=== PATIENT | male | born 1950 | race Caucasian/White ===

== ENCOUNTER 2021-11-30 16:24 | Inpatient (IN) ==
[2021-12-14] MEDS ORDERED: Benzonatate 100 MG CAPSULE PO PRN (21:24)
[2021-12-15 06:37] LABS: Basophils % 0.1 %; Eosinophils # 0.1 K/mcL (0.0-0.6); Eosinophils % 1.2 %; Hematocrit 47.1 % (37.5-50.1); Hemoglobin 15.1 g/dL (12.9-16.9); Immature Granulocytes % 1.1 % (0-4); Lymphocytes # 1.8 K/mcL (0.6-4.6); Lymphocytes % 21.2 %; Mean Corpuscular HGB Conc 32.1 g/dL (31.6-35.5); Mean Corpuscular Hemoglobin 27.5 pg (28.0-33.3); Mean Corpuscular Volume 85.6 fL (83.0-100.0); Mean Platelet Volume 10.4 fL (9.4-12.4); Monocytes # 0.9 K/mcL (0.0-1.3); Monocytes % 10.4 %; Neutrophils # 5.5 K/mcL (1.6-8.9); Platelet Count 280 K/mcL (140-400); Red Cell Distribution Width 13.3 % (11.5-14.5); White Blood Count 8.3 K/mcL (4.3-11.1)
[2021-12-15 07:06] LABS: BUN/Creatinine Ratio 26 (6-26); Blood Urea Nitrogen 20 mg/dL (8-23); Calcium 8.7 mg/dL (8.6-10.3); Carbon Dioxide 31 mEq/L (23-29); Chloride 99 mEq/L (98-107); Glucose 182 mg/dL (70-105); Osmolality,Calculated 289 (280-300); Potassium 3.8 mEq/L (3.5-5.1); Sodium 136 mEq/L (136-145); eGFR For African Americans > 60 (> 60); eGFR For Non-African Americans > 60 (> 60)
[2021-12-15] MEDS: dexAMETHasone 4 MG TABLET PO SCH (10:01)
[2021-12-15] MEDS: Aspirin Enteric Coated 81 MG Tablet PO SCH (10:01)
[2021-12-15] MEDS: hydroCHLOROthiazide 25 MG TABLET PO SCH (10:01)
[2021-12-15] MEDS ORDERED: D5% in Water 1,000 ML IVC PRN (10:17)
[2021-12-15] MEDS ORDERED: *HR* Dextrose 50 % in Water (Syg) 50 ML SYRINGE IVP PRN (10:17)
[2021-12-15] MEDS ORDERED: Dextrose Gel 15 GM/37.5 ML TUBE PO PRN ×2 (10:17)
[2021-12-15] MEDS: Insulin LISPRO 300 UNITS/3 ML VIAL SUBQ SCH ×3 (12:31→21:34)
[2021-12-16] MEDS: Insulin LISPRO 300 UNITS/3 ML VIAL SUBQ SCH ×4 (08:33→21:37)
[2021-12-16] MEDS: dexAMETHasone 4 MG TABLET PO SCH (08:58)
[2021-12-16] MEDS: Aspirin Enteric Coated 81 MG Tablet PO SCH (08:58)
[2021-12-16] MEDS: hydroCHLOROthiazide 25 MG TABLET PO SCH (08:59)
[2021-12-16] MEDS ORDERED: Insulin DETEMIR 100 UNIT/ML per UNIT SUBQ ONE (21:00)
[2021-12-17] MEDS: Insulin LISPRO 300 UNITS/3 ML VIAL SUBQ SCH ×4 (09:15→19:47)
[2021-12-17] MEDS: Aspirin Enteric Coated 81 MG Tablet PO SCH (09:19)
[2021-12-17] MEDS: hydroCHLOROthiazide 25 MG TABLET PO SCH ×2 (09:20→09:21)
[2021-12-17] MEDS: dexAMETHasone 4 MG TABLET PO SCH (09:21)
[2021-12-17] MEDS: Insulin DETEMIR 100 UNIT/ML X5UNITS SUBQ SCH ×2 (09:36→19:47)
[2021-12-17] MEDS: Sennosides/Docusate Sodium TABLET PO SCH ×2 (12:49→19:47)
[2021-12-18] MEDS: *HR* Enoxaparin 40 MG/0.4 ML SYRINGE SQ SCH (05:29)
[2021-12-18] MEDS: Insulin LISPRO 300 UNITS/3 ML VIAL SUBQ SCH ×4 (08:14→20:21)
[2021-12-18] MEDS: Sennosides/Docusate Sodium TABLET PO SCH ×2 (08:17→20:20)
[2021-12-18] MEDS: Aspirin Enteric Coated 81 MG Tablet PO SCH (08:18)
[2021-12-18] MEDS: hydroCHLOROthiazide 25 MG TABLET PO SCH (08:21)
[2021-12-18] MEDS: Insulin DETEMIR 100 UNIT/ML X5UNITS SUBQ SCH ×2 (08:23→20:21)
[2021-12-19] MEDS: *HR* Enoxaparin 40 MG/0.4 ML SYRINGE SQ SCH (05:19)
[2021-12-19] MEDS: Sennosides/Docusate Sodium TABLET PO SCH ×2 (08:41→20:02)
[2021-12-19] MEDS: hydroCHLOROthiazide 25 MG TABLET PO SCH (08:41)
[2021-12-19] MEDS: Aspirin Enteric Coated 81 MG Tablet PO SCH (08:41)
[2021-12-19] MEDS: Insulin DETEMIR 100 UNIT/ML X5UNITS SUBQ SCH ×2 (09:02→20:02)
[2021-12-19] MEDS: Insulin LISPRO 300 UNITS/3 ML VIAL SUBQ SCH ×4 (09:03→20:03)
[2021-12-20] MEDS: *HR* Enoxaparin 40 MG/0.4 ML SYRINGE SQ SCH (05:53)
[2021-12-20] MEDS: Aspirin Enteric Coated 81 MG Tablet PO SCH (07:52)
[2021-12-20] MEDS: Sennosides/Docusate Sodium TABLET PO SCH ×2 (07:53→21:06)
[2021-12-20] MEDS: hydroCHLOROthiazide 25 MG TABLET PO SCH (07:53)
[2021-12-20] MEDS: Insulin LISPRO 300 UNITS/3 ML VIAL SUBQ SCH ×4 (07:53→21:09)
[2021-12-20] MEDS: Insulin DETEMIR 100 UNIT/ML X5UNITS SUBQ SCH ×2 (08:32→21:10)
[2021-12-20 19:57] VITALS: BP 122/73
[2021-12-21] MEDS: *HR* Enoxaparin 40 MG/0.4 ML SYRINGE SQ SCH (05:34)
[2021-12-21 06:33] VITALS: PULSE 78; RESP 19; TEMP 98.3
[2021-12-21 07:30] LABS: Hematocrit 41.9 % (37.5-50.1); Hemoglobin 13.1 g/dL (12.9-16.9); Mean Corpuscular HGB Conc 31.3 g/dL (31.6-35.5); Mean Corpuscular Hemoglobin 27.4 pg (28.0-33.3); Mean Corpuscular Volume 87.7 fL (83.0-100.0); Mean Platelet Volume 10.3 fL (9.4-12.4); Platelet Count 185 K/mcL (140-400); Red Blood Count 4.78 M/mcL (4.19-5.50); Red Cell Distribution Width 13.6 % (11.5-14.5); White Blood Count 6.7 K/mcL (4.3-11.1)
[2021-12-21 07:51] LABS: BUN/Creatinine Ratio 18 (6-26); Blood Urea Nitrogen 13 mg/dL (8-23); Calcium 8.5 mg/dL (8.6-10.3); Carbon Dioxide 35 mEq/L (23-29); Chloride 100 mEq/L (98-107); Glucose 113 mg/dL (70-105); Osmolality,Calculated 285 (280-300); Potassium 3.6 mEq/L (3.5-5.1); Sodium 137 mEq/L (136-145); eGFR For African Americans > 60 (> 60); eGFR For Non-African Americans > 60 (> 60)
[2021-12-21] MEDS: hydroCHLOROthiazide 25 MG TABLET PO SCH (08:28)
[2021-12-21] MEDS: Sennosides/Docusate Sodium TABLET PO SCH (08:28)
[2021-12-21] MEDS: Aspirin Enteric Coated 81 MG Tablet PO SCH (08:28)
[2021-12-21] MEDS: Insulin DETEMIR 100 UNIT/ML X5UNITS SUBQ SCH (08:29)
[2021-12-21] MEDS: Insulin LISPRO 300 UNITS/3 ML VIAL SUBQ SCH ×2 (08:29→12:42)
[2021-12-21 10:51] VITALS: O2SAT 94
== END 2021-12-21 15:35 | disposition home health service (06) | DRG 177 ==
LOC: INPPIK 12-14 17:07
PROVIDERS: ADMIT Family Medicine; ATTEND Family Medicine

== ENCOUNTER 2021-11-30 19:03 | Inpatient (IN) ==
[2021-12-01] MEDS ORDERED: SOLIQUA SQ PRN (23:18)
[2021-12-02 06:29] LABS: Basophils % 0.2 %; Eosinophils % 0.2 %; Hemoglobin 14.5 g/dL (12.9-16.9); Immature Granulocytes % 0.4 % (0-4); Lymphocytes # 0.7 K/mcL (0.6-4.6); Lymphocytes % 13.8 %; Mean Corpuscular HGB Conc 31.5 g/dL (31.6-35.5); Mean Corpuscular Hemoglobin 27.6 pg (28.0-33.3); Mean Corpuscular Volume 87.5 fL (83.0-100.0); Mean Platelet Volume 11.4 fL (9.4-12.4); Monocytes # 0.8 K/mcL (0.0-1.3); Monocytes % 14.6 %; Neutrophils # 3.7 K/mcL (1.6-8.9); Platelet Count 211 K/mcL (140-400); Red Blood Count 5.26 M/mcL (4.19-5.50); Segmented Neutrophils % 70.8 %; White Blood Count 5.2 K/mcL (4.3-11.1)
[2021-12-02 06:56] LABS: BUN/Creatinine Ratio 19 (6-26); Blood Urea Nitrogen 14 mg/dL (8-23); Calcium 8.8 mg/dL (8.6-10.3); Carbon Dioxide 32 mEq/L (23-29); Chloride 102 mEq/L (98-107); Glucose 200 mg/dL (70-105); Osmolality,Calculated 298 (280-300); Potassium 3.7 mEq/L (3.5-5.1); Sodium 141 mEq/L (136-145); eGFR For African Americans > 60 (> 60); eGFR For Non-African Americans > 60 (> 60)
[2021-12-02] MEDS ORDERED: D5% in Water 1,000 ML IVC PRN (07:56)
[2021-12-02] MEDS ORDERED: Dextrose Gel 15 GM/37.5 ML TUBE PO PRN ×2 (07:56)
[2021-12-02] MEDS ORDERED: *HR* Dextrose 50 % in Water (Syg) 50 ML SYRINGE IVP PRN (07:56)
[2021-12-02] MEDS: Insulin LISPRO 300 UNITS/3 ML VIAL SUBQ SCH ×3 (08:38→17:30)
[2021-12-02] MEDS: Aspirin Enteric Coated 81 MG Tablet PO SCH (08:39)
[2021-12-02] MEDS: dexAMETHasone 4 MG TABLET PO SCH (08:39)
[2021-12-02] MEDS: Sennosides/Docusate Sodium TABLET PO SCH (14:11)
[2021-12-03] MEDS: *HR* Enoxaparin 40 MG/0.4 ML SYRINGE SQ SCH (05:36)
[2021-12-03] MEDS: Insulin LISPRO 300 UNITS/3 ML VIAL SUBQ SCH ×3 (09:04→16:42)
[2021-12-03] MEDS: dexAMETHasone 4 MG TABLET PO SCH (09:05)
[2021-12-03] MEDS: Aspirin Enteric Coated 81 MG Tablet PO SCH (09:05)
[2021-12-03] MEDS: Sennosides/Docusate Sodium TABLET PO SCH ×2 (09:06→19:48)
[2021-12-04] MEDS: *HR* Enoxaparin 40 MG/0.4 ML SYRINGE SQ SCH (05:18)
[2021-12-04] MEDS: Insulin LISPRO 300 UNITS/3 ML VIAL SUBQ SCH ×3 (07:54→16:56)
[2021-12-04] MEDS: Aspirin Enteric Coated 81 MG Tablet PO SCH (07:57)
[2021-12-04] MEDS: dexAMETHasone 4 MG TABLET PO SCH (07:57)
[2021-12-04] MEDS: Sennosides/Docusate Sodium TABLET PO SCH ×2 (07:57→19:45)
[2021-12-05] MEDS: *HR* Enoxaparin 40 MG/0.4 ML SYRINGE SQ SCH (06:19)
[2021-12-05] MEDS: Insulin LISPRO 300 UNITS/3 ML VIAL SUBQ SCH ×3 (08:34→17:45)
[2021-12-05] MEDS: Aspirin Enteric Coated 81 MG Tablet PO SCH (08:37)
[2021-12-05] MEDS: dexAMETHasone 4 MG TABLET PO SCH (08:37)
[2021-12-05] MEDS: Sennosides/Docusate Sodium TABLET PO SCH ×2 (08:37→21:19)
[2021-12-05] MEDS: Acetaminophen 325 MG TABLET PO PRN (08:37)
[2021-12-05 11:32] LABS: Basophils % 0.1 %; Hematocrit 49.9 % (37.5-50.1); Hemoglobin 15.8 g/dL (12.9-16.9); Immature Granulocytes % 0.6 % (0-4); Lymphocytes # 0.4 K/mcL (0.6-4.6); Lymphocytes % 5.5 %; Mean Corpuscular HGB Conc 31.7 g/dL (31.6-35.5); Mean Corpuscular Hemoglobin 27.4 pg (28.0-33.3); Mean Corpuscular Volume 86.6 fL (83.0-100.0); Mean Platelet Volume 10.7 fL (9.4-12.4); Monocytes % 12.2 %; Neutrophils # 6.3 K/mcL (1.6-8.9); Platelet Count 274 K/mcL (140-400); Red Blood Count 5.76 M/mcL (4.19-5.50); Red Cell Distribution Width 14.3 % (11.5-14.5); Segmented Neutrophils % 81.6 %; White Blood Count 7.8 K/mcL (4.3-11.1)
[2021-12-05 11:50] LABS: VBG Chloride 96 mEq/L (98-107)
[2021-12-05 12:06] LABS: Alanine Aminotransferase 33 Units/L (7-52); Albumin 3.1 g/dL (3.5-5.7); Albumin/Globulin Ratio 1.1 (1.1-2.2); Alkaline Phosphatase 34 Units/L (34-104); Aspartate Amino Transferase 25 Units/L (13-39); BUN/Creatinine Ratio 20 (6-26); Bilirubin,Total 0.8 mg/dL (0.3-1.0); Blood Urea Nitrogen 23 mg/dL (8-23); Calcium 8.7 mg/dL (8.6-10.3); Carbon Dioxide 30 mEq/L (23-29); Globulin 2.8 g/dL (2.4-3.5); Glucose 172 mg/dL (70-105); Total Protein 5.9 g/dL (6.4-8.9); eGFR For African Americans > 60 (> 60); eGFR For Non-African Americans > 60 (> 60)
[2021-12-05 17:01] LABS: ABG Base Excess 3 mEq/L (-2 to 3); ABG HCO3 28 mEq/L (21-27); ABG Oxygen Saturation 84 % (95-98); ABG PCO2 46 mmHg (35-45); ABG PO2 50 mmHg (85-104); ABG TCO2 30 mEq/L (20-26)
[2021-12-05] MEDS: Piperacillin/Tazobactam 3.375 GM in 0.9 % Sodium Chloride Mini Bag 100 ML IVPB SCH (17:43)
[2021-12-05] MEDS: Dexamethasone Sodium Phos/PF 10 MG/ML VIAL IVP SCH (17:45)
[2021-12-06] MEDS: Piperacillin/Tazobactam 3.375 GM in 0.9 % Sodium Chloride Mini Bag 100 ML IVPB SCH ×2 (00:30→08:16)
[2021-12-06] MEDS: *HR* Enoxaparin 40 MG/0.4 ML SYRINGE SQ SCH (05:21)
[2021-12-06 07:07] VITALS: BP 121/84; PULSE 83; TEMP 98
[2021-12-06] MEDS: Insulin LISPRO 300 UNITS/3 ML VIAL SUBQ SCH (08:14)
[2021-12-06] MEDS: Dexamethasone Sodium Phos/PF 10 MG/ML VIAL IVP SCH (08:16)
[2021-12-06] MEDS: Aspirin Enteric Coated 81 MG Tablet PO SCH (08:16)
[2021-12-06] MEDS: Acetaminophen 325 MG TABLET PO PRN (08:16)
[2021-12-06] MEDS: Sennosides/Docusate Sodium TABLET PO SCH (08:16)
[2021-12-06 09:41] LABS: Basophils % 0.1 %; Hematocrit 49.9 % (37.5-50.1); Hemoglobin 15.7 g/dL (12.9-16.9); Immature Granulocytes % 0.5 % (0-4); Lymphocytes # 0.5 K/mcL (0.6-4.6); Lymphocytes % 5.4 %; Mean Corpuscular HGB Conc 31.5 g/dL (31.6-35.5); Mean Corpuscular Hemoglobin 27.2 pg (28.0-33.3); Mean Corpuscular Volume 86.5 fL (83.0-100.0); Mean Platelet Volume 10.8 fL (9.4-12.4); Monocytes # 0.7 K/mcL (0.0-1.3); Monocytes % 8.4 %; Neutrophils # 7.4 K/mcL (1.6-8.9); Platelet Count 290 K/mcL (140-400); Red Blood Count 5.77 M/mcL (4.19-5.50); Red Cell Distribution Width 14.2 % (11.5-14.5); Segmented Neutrophils % 85.6 %; White Blood Count 8.7 K/mcL (4.3-11.1)
[2021-12-06 09:56] LABS: Alanine Aminotransferase 31 Units/L (7-52); Albumin 3.2 g/dL (3.5-5.7); Albumin/Globulin Ratio 1.1 (1.1-2.2); Alkaline Phosphatase 33 Units/L (34-104); Aspartate Amino Transferase 20 Units/L (13-39); BUN/Creatinine Ratio 26 (6-26); Bilirubin,Total 0.7 mg/dL (0.3-1.0); Blood Urea Nitrogen 24 mg/dL (8-23); Calcium 8.7 mg/dL (8.6-10.3); Carbon Dioxide 29 mEq/L (23-29); Chloride 95 mEq/L (98-107); Globulin 2.9 g/dL (2.4-3.5); Glucose 192 mg/dL (70-105); Osmolality,Calculated 283 (280-300); Potassium 4.1 mEq/L (3.5-5.1); Sodium 132 mEq/L (136-145); Total Protein 6.1 g/dL (6.4-8.9); eGFR For African Americans > 60 (> 60); eGFR For Non-African Americans > 60 (> 60)
[2021-12-06 10:07] VITALS: RESP 20; O2SAT 89
[2021-12-06 15:55] LABS: C-Reactive Protein 35 mg/L (Less than 10)
== END 2021-12-06 11:00 | disposition short-term general hospital (02) | DRG 177 ==
LOC: INPPIK 12-01 22:20
PROVIDERS: ADMIT Family Medicine; ATTEND Family Medicine